=== PATIENT | male | born 1985 | race Caucasian/White ===

== ENCOUNTER → 2020-12-24 | Emergency (ER) | payer OTHER ==
[~2020-12-24] VITALS: Ht 177.8 cm; Wt 81.6 kg
[~2020-12-24] MED LIST: PAMELOR25 MG; WELLBUTRIN SR150 MG; ZYRTEC10 M3
== END | disposition left against medical advice (07) ==
LOC: ER 12:34
DX: Z53.20 Procedure and treatment not carried out because of patient's decision for unspecified reasons (principal)